=== PATIENT | male | born 1985 | race Two or more races ===

== ENCOUNTER 2018-02-14 11:40 | Emergency (ER) | payer MEDICAID ==
--- NOTE | 2018-02-14 12:10 | CPEKG ---
Heart Rate: 72 RR Interval: 833 P-R Interval: 140 QRSD Interval: 94 QT Interval: 352 QTC Interval: 386 P [place]: 57 QRS [place]: 64 T Wave [place]: 35 EKG Severity - NORMAL ECG - EKG Impression: SINUS RHYTHM Electronically Signed By: Lidya Crenshaw 16-Feb-2018 14:29:13
--- NOTE | 2018-02-14 12:27 | EDPHY ---
HPI/HX/ROS/PE/MDM Narrative: CHIEF COMPLAINT: Sharp chest and abdominal pain HISTORY OF PRESENT ILLNESS: The patient is a 33 y/o male complaining of sharp chest and left upper abdominal pain onset last night. For the past several years he has had similar symptoms and was seen at [facility] and was diagnosed with pericarditis. Several years ago he had an upper endoscopy for "problems with his esophagus", but the patient is unsure of the results from this test. It has been several years since he last saw a field crop farming supervisor due to cost. For the past year his symptoms have occurred around once a month. However, the patient has experienced the sharp chest and abdominal pain weekly for the past month. Last night after eating a cheeseburger and lying in bed he turned to one side and developed the sharp bilateral chest pain associated with nausea. The pain occasionally radiates to his jaw and feels tight. Denies taking an antacid for several years. Denies history of hypertension, diabetes, problem with his gallbladder. Admits to smoking marijuana daily for anxiety and occasionally smoking tobacco; denies alcohol or illicit drug use. No fever, chills, shortness of breath, palpitations, vomiting, diarrhea, urinary complaints, headache, lightheadedness. REVIEW OF SYSTEMS: Aside from elements discussed in the HPI, a comprehensive 10-point review of systems was reviewed and is negative. PAST MEDICAL HISTORY: Back problems,intermittent chronic chest and upper abdominal pain SOCIAL HISTORY: Lives in [place], single, not employed VITAL SIGNS: Reviewed by me GENERAL: Well-developed, well-nourished, resting comfortably in no respiratory distress. HEENT: Atraumatic. Eyes: No icterus, no injection. Mouth: moist mucous membranes. No erythema or lesions. Neck: supple with no adenopathy. LUNGS: Clear to auscultation bilaterally, no wheezes, rhonchi or rales. No tenderness of chest wall. No rash. No costochondal tenderness. CARDIAC: Regular rate and rhythm, no rubs, murmurs or gallops. ABDOMEN: Left upper quadrant tenderness, epigastric discomfort to palpation. Soft, nondistended, bowel sounds normal. BACK: Mild left flank tenderness. EXTREMITIES: No trauma. No edema. Range of motion is normal throughout. NEURO: Alert and oriented, grossly nonfocal. SKIN: Warm and dry, no rash. PSYCHIATRIC: Normal mentation, no agitation. Portions of this note were transcribed by a certified medical aide. I personally performed a history, physical exam, medical decision making, and confirmed accuracy of information the transcribed note. ED Course: The patient is a 33 y/o male with a several year history of chest and abdominal pain presenting with sharp chest and left upper abdominal pain onset last night. On exam he has LUQ tenderness, epigastric discomfort, and mild left flank tenderness. Labs, EKG, and chest x-ray ordered; GI cocktail administered. 1209: 12-LEAD EKG: Please see the full report in [facility]. My interpretation: Normal sinus rhythm with a rate of 72 1345: Patient has a negative troponin and chest x-ray. Normal chemisties including lipase and LFTS and h pylori test. 1440: Reassessed patient and discussed normal laboratory and imaging findings. I believe his symptoms today are due his history of esophageal problems. I discussed the importance of following up with a field crop farming supervisor. He is now complaining of back pain, which he has had since 2007. 30mg IV Toradol, Lidocaine patch, and Decadron administered prior to discharge of his back pain. I have advised him to follow up with a physical therapist regarding this back pain. Return precautions provided; patient is comfortable with this plan. Please note: patient documented as having pulse ox of 20. This is an error. Patient quite comfortable thru whole ED course and never noted to have low pulse ox reading. At ut, pulse ox of 98% MDM: After history and physical examination, the differential for chest pain was considered, including but not limited to, myocardial ischemia, acute coronary syndrome, chest wall pain, pericarditis, pleurisy, gastroentestinal causes, pleural inflammation and pulmonary infectious causes. - Data Points Imaging Results: Impression: Normal chest x-ray. Dictated By: Jordan Navarro MD Imaging: Discussed imaging studies w/ order desk caller Radiologist, I viewed and interpreted images myself Laboratory Results: Laboratory Results 02/14/18 13:30 02/14/18 13:30 Medications Given: Discontinued Medications Al Hydroxide/Mg Hydroxide (Maalox Susp) 30 ml PO ONCE ONE Stop: 02/14/18 12:46 Last Admin: 02/14/18 13:52 Dose: 30 ml Dexamethasone (Decadron) 8 mg PO EDNOW ONE Stop: 02/14/18 14:59 Last Admin: 02/14/18 15:07 Dose: 8 mg Hyoscyamine Sulfate (Levsin, Hyomax-Sl) 0.25 mg PO ONCE ONE Stop: 02/14/18 12:46 Last Admin: 02/14/18 13:52 Dose: 0.25 mg Sodium Chloride (Ns) 500 mls @ 0 mls/hr IV EDNOW ONE; Wide Open PRN Reason: Protocol Stop: 02/14/18 12:46 Last Admin: 02/14/18 13:59 Dose: 500 mls Ketorolac Tromethamine (Toradol) 30 mg IVP EDNOW ONE Stop: 02/14/18 14:48 Last Admin: 02/14/18 14:59 Dose: 30 mg Lidocaine (Lidocaine 2% Viscous) 15 ml PO ONCE ONE Stop: 02/14/18 12:46 Last Admin: 02/14/18 13:52 Dose: 15 ml Miscellaneous Medication (Icy Hot Lidocaine/Menthol 4%/1% Patch) 1 patch TD EDNOW ONE Stop: 02/14/18 14:48 Last Admin: 02/14/18 14:59 Dose: 1 patch Pantoprazole Sodium (Protonix) 40 mg IVP EDNOW ONE Stop: 02/14/18 12:48 Last Admin: 02/14/18 13:53 Dose: 40 mg Point of Care Test Results: Chemistry 02/14/18 13:34 POC Troponin I 0.00 ng/mL ng/mL (0.00-0.08) General Time Seen by Provider: 02/14/18 12:25 Initial Vital Signs: Initial Vital Signs Temperature (C) 36.8 C 02/14/18 11:46 Heart Rate 77 02/14/18 11:46 Respiratory Rate 18 02/14/18 11:46 Blood Pressure 117/87 H 02/14/18 11:46 O2 Sat (%) 20 L 02/14/18 11:46 O2 Delivery Mode Room Air O2 (L/minute) 2 Allergies/Adverse Reactions: No Known Allergies Allergy (Unverified 02/14/18 11:43) Home Medications: Medication Instructions Recorded Gabapentin 02/14/18 MIRTAZAPINE 02/14/18 Departure - Departure Disposition: Home, Routine, Self-Care Clinical Impression: suspect esophageal spasm, Chest wall pain Chest pain Qualifiers: Chest pain type: chest pain on breathing Qualified Code(s): R07.1 - Chest pain on breathing; R07.81 - Pleurodynia Condition: Good Instructions: Chest Pain (ED), Gastroesophageal Reflux Disease (ED), Esophageal Spasm (ED) Additional Instructions: There is no evidence at this time that your chest discomfort is from your heart. I am concerned that this may be related to your esophageal issues. It is very important that you follow up with Gastroenterology for repeat evaluations to possibly include scope and swallow study. Please begin taking omeprazole 40 mg each evening as directed for the next 2 weeks. Avoid spicy foods. Return to the emergency department or seek care urgently if you are worsening despite the above measures, if you have vomiting, vomiting blood, increased pain , fevers and chills, or other concerns. For your back pain: If you take ibuprofen, please take it with Maalox or Mylanta to avoid inflammation in your stomach. Otherwise you may use Tylenol. I suggest high- dose Tylenol (650mg-1000mg of Tylenol) up to 3 times a day. Not exceed 3000 mg in a 24 hour period. You were given a oral dose of Decadron in the emergency department which should help significantly with inflammation. Please apply ice for 20-30 minutes for the next 48 hr. Icing the back is always better than heat after an acute flare of your back pain. I also suggest lidocaine patches. 4% lidocaine patches are available over-the- counter. Please follow up with your primary care physician if you're not improving as expected in the next several days. Consider physical therapy or chiropractic followup for persistent discomfort. Return to the emergency department if you experience significantly worsening pain, pain radiating into the legs, weakness, numbness or tingling, difficulties with bowel or bladder, fever, nausea, vomiting, or other concerns. Referrals: [facility] [Outside] - As per Instructions Arturo Purcell MD [Medical Doctor] - As per Instructions Report Scribed for: Nava Rose Report Scribed by: Carmen Dos Santos Date of Report: 02/14/18 Time of Report: 12:26
[2018-02-14] MEDS ORDERED: MAG HYDROX/AL HYDROX/SIMETH 30 ML UDCUP PO ONE (12:45)
[2018-02-14] MEDS ORDERED: HYOSCYAMINE SULFATE 0.125 MG TAB PO ONE (12:45)
[2018-02-14] MEDS ORDERED: NS 500 ML IV ONE (12:45)
[2018-02-14] MEDS ORDERED: LIDOCAINE 2% VISCOUS 15 ML UDCUP PO ONE (12:45)
[2018-02-14] MEDS ORDERED: PANTOPRAZOLE SODIUM 40 MG VIAL IVP ONE (12:47)
[2018-02-14 13:43] LABS: PLATELET COUNT 215 10^3/uL (150-400)
[2018-02-14 14:29] VITALS: BP 123/78
[2018-02-14] MEDS ORDERED: KETOROLAC 30 MG/1 ML SDV IVP ONE (14:47)
[2018-02-14] MEDS ORDERED: LIDOCAINE 4%/MENTHOL 1% PATCH TD ONE (14:47)
[2018-02-14] MEDS: DEXAMETHASONE 4 MG TAB PO ONE ×2 (15:00→15:07)
[2018-02-14] MEDS ORDERED: PATCH REMOVAL 1 EA PATCH TD SCH (21:00)
== END 2018-02-14 15:10 | disposition home or self-care (01) ==
DX: R07.1 Chest pain on breathing (principal); R07.81 Pleurodynia; E86.9 Volume depletion, unspecified; F17.200 Nicotine dependence, unspecified, uncomplicated
CPT/HCPCS: 84484-PO; 96374; J1885